=== PATIENT | male | born 1995 | race Caucasian/White ===

== ENCOUNTER → 2020-11-21 | Outpatient (CLI) | payer BC | LOC: EXRD 11:11 | DX: R06.00 Dyspnea, unspecified (principal); M54.5 Low back pain; M47.816 Spondylosis without myelopathy or radiculopathy, lumbar region | CPT/HCPCS: 71046; 72110 ==

== ENCOUNTER → 2020-12-11 | Outpatient (CLI) | payer BC | LOC: HEART 5 11:07 | DX: R07.9 Chest pain, unspecified (principal) ==